=== PATIENT | female | born 1970 | race Asian ===

== ENCOUNTER 2023-03-05 14:15 | Outpatient (CLI) | payer BC | END 2023-03-05 14:16 | disposition home or self-care (01) | LOC: ULT 14:15 | PROVIDERS: ATTEND Family Medicine | DX: M79.661 Pain in right lower leg (principal); M79.662 Pain in left lower leg | CPT/HCPCS: 93970 ==

== ENCOUNTER 2023-06-12 14:55 | Outpatient (CLI) | payer BC | END 2023-06-12 14:56 | disposition home or self-care (01) | LOC: SCSRAD 14:55 | PROVIDERS: ATTEND Family Medicine | DX: R05.2 Subacute cough (principal) | CPT/HCPCS: 71046 ==